=== PATIENT | female | born 1970 | race Caucasian/White ===

== ENCOUNTER 2017-06-11 00:53 | Emergency (ER) | payer SELFPAY ==
[2017-06-11 01:41] LABS: RBC URINE 1 /hpf (0-3); URINE BACTERIA RARE (<OCC); URINE BILIRUBIN NEGATIVE (NEGATIVE); URINE COLOR Straw (YELLOW); URINE GLUCOSE (UA) NORMAL (Normal); URINE KETONE NEGATIVE (NEGATIVE); URINE LEUKOCYTE ESTERASE 3+ Leu/uL (Negative); URINE PROTEIN NEGATIVE (NEGATIVE); URINE UROBILINOGEN NORMAL mg/dL (0.2-1.0); WBC URINE 53 /hpf (0-5)
[2017-06-11 01:45] LABS: URINE BLOOD NEGATIVE (NEGATIVE)
[2017-06-11 02:29] VITALS: BP 132/74; PULSE 75; RESP 20; TEMP 98.5; O2SAT 99
--- NOTE | 2017-06-11 02:42 | C.PDOC ---
History Of Present Illness 46 year old female presents to the ED for evaluation of suprapubic abdominal pain associated with dysuria and hematuria since this afternoon. Patient also reports fever and states she took Advil earlier today. She denies nausea, vomiting, or changes in bowel habits. Time Seen by Provider: 06/11/17 01:15 Chief Complaint (Nursing): Female Genitourinary History Per: Patient History/Exam Limitations: no limitations Onset/Duration Of Symptoms: Hrs Current Symptoms Are (Timing): Still Present Quality Of Discomfort: "Pain" Associated Symptoms: Fever, Urinary Symptoms (dysuria, hematuria ). denies: Nausea, Vomiting, Diarrhea, Constipation Additional History Per: Patient Abnormal Vaginal Bleeding: No Past Medical History Reviewed: Historical Data, Nursing Documentation, Vital Signs Vital Signs: Last Vital Signs Temp 98.5 F 06/11/17 02:29 Pulse 75 06/11/17 02:29 Resp 20 06/11/17 02:29 BP 132/74 06/11/17 02:29 Pulse Ox 99 06/11/17 02:42 - Medical History PMH: No Chronic Diseases Surgical History: No Surg Hx Family History: States: Unknown Family Hx - Social History Hx Alcohol Use: No Hx Substance Use: No Review Of Systems Constitutional: Positive for: Fever Gastrointestinal: Positive for: Abdominal Pain (suprapubic ). Negative for: Nausea, Vomiting, Diarrhea, Constipation Genitourinary: Positive for: Dysuria, Hematuria Physical Exam - Physical Exam Appears: Non-toxic, No Acute Distress Skin: Normal Color, Warm, Dry Oral Mucosa: Moist Neck: Supple Chest: Symmetrical, No Deformity, No Tenderness Cardiovascular: Rhythm Regular, No Murmur Respiratory: Normal Breath Sounds, No Rales, No Rhonchi, No Wheezing Gastrointestinal/Abdominal: Soft, No Tenderness, No Guarding, No Rebound Extremity: Normal ROM, Capillary Refill (less than 2 seconds ) Neurological/Psych: Oriented x3, Normal Speech, Normal Cognition Gait: Steady ED Course And Treatment O2 Sat by Pulse Oximetry: 99 (on RA) Pulse Ox Interpretation: Normal Disposition - Disposition Referrals: [facility] at [facility] [Outside] Disposition: HOME/ ROUTINE Disposition Time: 02:38 Condition: GOOD Additional Instructions: Follow up with the medical doctor within 1-2 days. Return if worsened. Prescriptions: Ciprofloxacin [Cipro] 1 tab PO BID #14 tab Phenazopyridine HCl [Pyridium] 200 mg PO TID #14 tablet Instructions: Urinary Tract Infection in Women (ED) Forms: [employer] 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 - Scribe Statement The provider has reviewed the documentation as recorded by the Scribe (Janet Ventura) All medical record entries made by the Scribe were at my direction and personally dictated by me. I have reviewed the chart and agree that the record accurately reflects my personal performance of the history, physical exam, medical decision making, and the department course for this patient. I have also personally directed, reviewed, and agree with the discharge instructions and disposition.
== END 2017-06-11 02:54 | disposition home or self-care (01) ==
LOC: C.ER 00:53
DX: N39.0 Urinary tract infection, site not specified (principal)

== ENCOUNTER 2017-12-17 20:29 | Emergency (ER) | payer OTHER ==
[2017-12-17 21:05] VITALS: BP 113/77; PULSE 72; RESP 16; TEMP 98.3; O2SAT 100
[2017-12-17 21:30] LABS: SQUAMOUS EPITHIAL 4 /hpf (0-5); URINE BACTERIA FEW (<OCC); URINE BILIRUBIN NEGATIVE (NEGATIVE); URINE BLOOD NEGATIVE (NEGATIVE); URINE CLARITY Clear (Clear); URINE COLOR Amber (YELLOW); URINE GLUCOSE (UA) NORMAL (Normal); URINE LEUKOCYTE ESTERASE NEG Leu/uL (Negative); URINE PROTEIN NEGATIVE (NEGATIVE)
--- NOTE | 2017-12-17 21:43 | C.PDOC ---
History Of Present Illness 47 y/o female presents to the ER complaining of urinating frequently for 3 days and blood tinge urine yesterday. She took OTC pyridium with mild relief. She also had leftover Cipro from last year took one dose and feeling better but needs more antibiotics. Time Seen by Provider: 12/17/17 21:27 Chief Complaint (Nursing): Female Genitourinary History Per: Patient History/Exam Limitations: no limitations Onset/Duration Of Symptoms: Days Current Symptoms Are (Timing): Still Present Severity: Moderate Past Medical History Reviewed: Historical Data, Nursing Documentation, Vital Signs Vital Signs: Last Vital Signs Temp 98.3 F 12/17/17 20:55 Pulse 72 12/17/17 20:55 Resp 16 12/17/17 20:55 BP 113/77 12/17/17 20:55 Pulse Ox 100 12/17/17 21:43 - Medical History PMH: No Chronic Diseases Other Surgeries: Hx of surgeries Family History: States: No Known Family Hx - Social History Hx Alcohol Use: No Hx Substance Use: No - Immunization History Hx Influenza Vaccination: No Hx Pneumococcal Vaccination: No Review Of Systems Except As Marked, All Systems Reviewed And Found Negative. Constitutional: Negative for: Fever, Chills Genitourinary: Positive for: Frequency, Hematuria. Negative for: Dysuria Physical Exam - Physical Exam Appears: Non-toxic, No Acute Distress Skin: Normal Color, Warm, Dry Head: Atraumatic, Normacephalic Eye(s): bilateral: Normal Inspection Nose: Normal Oral Mucosa: Moist Neck: Supple Chest: Symmetrical Cardiovascular: Rhythm Regular Respiratory: Normal Breath Sounds, No Rales, No Rhonchi, No Wheezing Gastrointestinal/Abdominal: Normal Exam, Soft, No Tenderness, No Guarding, No Rebound Extremity: Normal ROM Neurological/Psych: Oriented x3, Normal Speech ED Course And Treatment O2 Sat by Pulse Oximetry: 100 (RA) Pulse Ox Interpretation: Normal Medical Decision Making Medical Decision Making: Impression: urinary symptoms Plan: * UA Progress: UA shows +nitrates and LE. Dx: UTI Dispo: Patient remained afebrile and in no distress. Instruct patient to drink fluids and take antibiotics and complete course Disposition Counseled Patient/Family Regarding: Diagnosis, Need For Followup, Rx Given - Disposition Referrals: Brendan Beard MD [Staff Provider] - Disposition: HOME/ ROUTINE Disposition Time: 21:40 Condition: GOOD Additional Instructions: Take antibiotic twice daily and be sure to finish taking all of antibiotic. Drink plenty of fluids. If urine culture was performed, call back for results in 2-3 days for results to confirm antibiotic is treating UTI well. 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 - Scribe Statement The provider has reviewed the documentation as recorded by the Jaison Ambrose Provider Attestation All medical record entries made by the Robertoibranjeet were at my direction and personally dictated by me. I have reviewed the chart and agree that the record accurately reflects my personal performance of the history, physical exam, medical decision making, and the department course for this patient. I have also personally directed, reviewed, and agree with the discharge instructions and disposition.
== END 2017-12-17 21:56 | disposition home or self-care (01) ==
LOC: C.ER 20:29
DX: N39.0 Urinary tract infection, site not specified (principal)

== ENCOUNTER 2018-07-17 06:54 | Emergency (ER) | payer SELFPAY ==
[2018-07-17 07:03] VITALS: RESP 20
--- NOTE | 2018-07-17 07:14 | C.PDOC ---
History Of Present Illness 47 year old female presents to the ED for evaluation of body aches, cough, congestion, and subjective fever for 1 week. The patient reports the cough is nonproductive. Denies fever, diarrhea, and any other associated symptoms. C/c: Bodyaches, cough, congeation. Patient with 1 week of coough, non productive, bodyaches and fever. No vomiting or diarrhea. HPI: Influenza Time Seen by Provider: 07/17/18 07:06 Chief Complaint: Flu-like Symptoms History Per: Patient Exam Limitations: no limitations Have you had recent travel within the past 21 days to any of the following countries: [place], [place], [place] or [place]?: No Onset/Duration Of Symptoms: Days (5), Gradual Symptoms include: fever, bodyaches, cough. denies: vomiting, diarrhea, chest pain, rash Sick Contacts (Context): None Hx Influenza Vaccination: No Past Medical History Reviewed: Historical Data, Nursing Documentation, Vital Signs Vital Signs: Last Vital Signs Temp 98.3 F 07/17/18 06:57 Pulse 88 07/17/18 06:57 Resp 20 07/17/18 06:57 BP 96/61 L 07/17/18 06:57 Pulse Ox 99 07/17/18 06:57 - Medical History PMH: No Chronic Diseases Surgical History: No Surg Hx Family History: States: No Known Family Hx - Social History Hx Tobacco Use: No Hx Alcohol Use: No Hx Substance Use: No - Immunization History Hx Tetanus Toxoid Vaccination: No Hx Influenza Vaccination: No Hx Pneumococcal Vaccination: No Review Of Systems Constitutional: Positive for: Fever, Chills, Malaise ENT: Positive for: Nose Congestion, Throat Pain. Negative for: Ear Pain, Ear Discharge, Nose Pain Respiratory: Positive for: Cough. Negative for: Shortness of Breath, Wheezing Musculoskeletal: Negative for: Neck Pain Skin: Negative for: Rash Neurological: Negative for: Altered Mental Status, Dizziness Physical Exam - Physical Exam Appears: Well Skin: Normal Color, Warm Head: Atraumatic Eye(s): bilateral: Normal Inspection, PERRL, EOMI Nose: Normal Oral Mucosa: Moist Tongue: Normal Appearing Lips: Normal Appearing Gingiva: Normal Appearing Throat: Erythema Neck: Normal Lymphatic: Deferred Chest: Symmetrical Respiratory: Normal Breath Sounds Gastrointestinal/Abdominal: Normal Exam Back: Normal Inspection Pulses: Left Carotid: Normal, Right Carotid: Normal Gait: Steady Medical Decision Making Medical Decision Making: Differential: FLU. bronchitis, pneumonia Initial plan: -CXR Progress/Update: Patient stable for discharge home. Prescribed Zithromax and Mucinex. Advised to return to the ED if symptoms worsen. - ECG O2 Sat by Pulse Oximetry: 99 (RA) Pulse Ox Interpretation: Normal - Radiology X-Ray: Interpreted by Me X-Ray Interpretation: Infiltrates (? LLL) - Progress Condition: Re-examined Disposition Counseled Patient/Family Regarding: Studies Performed, Diagnosis, Need For Followup, Rx Given - Disposition Referrals: [facility] at [facility] [Outside] Disposition: HOME/ ROUTINE Disposition Time: 07:35 Condition: STABLE Prescriptions: Azithromycin [Zithromax] 250 mg PO DAILY #6 tab Guaifenesin [Mucinex] 600 mg PO BID 6 Days tab.er.12h Instructions: Pneumonia in Adults Forms: [facility] (British), General Discharge Instructions - POA Present On Arrival: None - Clinical Impression Clinical Impression: Pneumonia - Scribe Statement The provider has reviewed the documentation as recorded by the Scribe (Danya Ramon) Provider Attestation: All medical record entries made by the Scribe were at my direction and personally dictated by me. I have reviewed the chart and agree that the record accurately reflects my personal performance of the history, physical exam, medical decision making, and the department course for this patient. I have also personally directed, reviewed, and agree with the discharge instructions and disposition.
[2018-07-17 08:47] VITALS: BP 98/65; PULSE 89; TEMP 99.3; O2SAT 97
--- NOTE | 2018-07-17 13:13 | RAD ---
Date of service: 07/17/2018 HISTORY: cough COMPARISON: No prior. TECHNIQUE: Chest PA and lateral FINDINGS: LUNGS: Poor inspiration with low lung volumes, crowded bronchovascular markings and mild bibasilar atelectasis PLEURA: No significant pleural effusion identified. No pneumothorax apparent. CARDIOVASCULAR: No aortic atherosclerotic calcification present. Normal cardiac size. No pulmonary vascular congestion. OSSEOUS STRUCTURES: No significant abnormalities. VISUALIZED UPPER ABDOMEN: Normal. OTHER FINDINGS: None. IMPRESSION: Poor inspiration with low lung volumes, crowded bronchovascular markings and mild bibasilar atelectasis
== END 2018-07-17 08:47 | disposition home or self-care (01) ==
LOC: C.ER 06:54
DX: J18.9 Pneumonia, unspecified organism (principal)